=== PATIENT | male | born 1980 | race Caucasian/White ===

== ENCOUNTER 2022-04-12 08:33 | Emergency (ER) | payer OTHER, SELFPAY ==
[2022-04-12 08:41] VITALS: BP 152/92; PULSE 89; RESP 16; TEMP 36.4; O2SAT 99
--- NOTE | 2022-04-12 08:43 | ED.URI ---
HPI - URI/Sore Throat General Chief Complaint: Upper Respiratory Infection Stated Complaint: sinus congestion/earache Time Seen by Provider: 04/12/22 08:43 Source: patient and RN notes reviewed Mode of arrival: ambulatory Limitations: no limitations History of Present Illness HPI Narrative: 41 y/o male presented for c/o sinus pressure, congestion, facial pain for about one week, and right ear pain started today. Endorses drainage from the ear and muffled hearing. Denies tinnitus, dizziness, nausea or vomiting. Taking Benadryl at night for symptoms. Denies sob, wheezing, cough, fever or chills. MD elicited complaint: cough Related Data Allergies Allergy/AdvReac Type Severity Reaction Status Date / Time No Known Allergies Allergy Unverified 03/05/15 15:23 Review of Systems Review of Systems: CONSTITUTIONAL:Denies malaise, chills, sweats, fever EYES: Denies visual changes, redness, or discharge ENT: Reports rhinorrhea, congestion, sinus pain, otalgia CARDIOVASCULAR: Denies chest pain, palpitations, edema RESPIRATORY: Denies dyspnea GASTROINTESTINAL: Denies abdominal pain, nausea, vomiting, diarrhea SKIN: Denies rash or itching MUSCULOSKELETAL: Denies myalgia Exam Narrative: GENERAL: well-appearing EYES: conjunctivae clear ENT: Mucous membranes moist. Right TM unable to visualize due to fluid/bubbles in canal, mild erythema. Left TM pearly wise with dull light reflex and scarring to TM; no tragal tenderness. Oropharynx erythematous without lesions or exudate, no drooling, no hoarseness, no trismus, uvula midline. NECK: Supple. No lymphadenopathy CHEST: Clear to auscultation, breath sounds equal. HEART: Regular rate and rhythm. No murmur heard. SKIN: Warm, dry, no rash. NEURO: Alert and oriented x3. Course Course Emergency Course: Patient is aware of diagnosis, understands and agrees to treatment plan. Anticipatory guidance given. Patient agrees to follow-up as directed and is aware of reasons to seek care at the emergency department. Portions of this record may have been created with voice recognition software Level of Care: Express Care Visit Vital Signs Vital signs: Vital Signs Temperature 97.5 F L 04/12/22 08:41 Pulse Rate 89 04/12/22 08:41 Respiratory Rate 16 04/12/22 08:41 Blood Pressure 152/92 H 04/12/22 08:41 Pulse Oximetry 99 04/12/22 08:41 Temperature 97.5 F L 04/12/22 08:41 Pulse Rate 89 04/12/22 08:41 Respiratory Rate 16 04/12/22 08:41 Blood Pressure 152/92 H 04/12/22 08:41 Pulse Oximetry 99 04/12/22 08:41 reviewed MDM - URI/Sore Throat MDM Narrative Medical decision making narrative: Advised supportive measures for URI, will treat for EO with possible rupture and sinusitis, and reviewed signs/symptoms to go to the ER. Pt is appropriate for outpt treatment and f/u. Differential Diagnosis Differential diagnosis: Likely upper respiratory infection, sinusitis and viral infection Discharge Plan Discharge Clinical Impression: Upper respiratory infection Otitis media Qualifiers: Otitis media type: suppurative Chronicity: acute Laterality: right Recurrence: non-recurrent Patient Disposition: Home, Self-Care Condition: Stable Instructions: Sinusitis (ED), Ear Infection (ED) Additional Instructions: Take antibiotics as directed. Recommend antihistamine such as Benadryl, Zyrtec or Ro for sinus congestion Flonase nasal spray, 1 spray in each nostril once daily until symptoms improve Tylenol 1000mg every 8 hours as needed to reduce fever, pain Please establish and schedule a follow-up visit with a personal physician for further evaluation and treatment within 3-5days. If your symptoms persist, change or worsen significantly, go to the emergency department for further evaluation. Prescriptions: New ofloxacin 0.3 % drops 5 drp RIGHT EAR BID 5 Days Qty: 5 0RF amoxicillin-pot clavulanate 875-125 mg tablet 1 tablet PO Q12H 7
== END 2022-04-12 08:58 | disposition home or self-care (01) ==
PROVIDERS: Emergency Provider Nurse Practitioner Family
DX: J06.9 Acute upper respiratory infection, unspecified (principal); H66.91 Otitis media, unspecified, right ear
CPT/HCPCS: 99203; G0463